=== PATIENT | female | born 1930 | race Caucasian/White ===

== ENCOUNTER 2017-07-08 10:16 | Inpatient (IN) | payer OTHER ==
[2017-07-08] MEDS ORDERED: ONDANSETRON 4 MG/2 ML VIAL IVP ONE (10:26)
[2017-07-08] MEDS ORDERED: NS 1,000 ML IV ONE (10:26)
--- NOTE | 2017-07-08 10:26 | EDPHY ---
H & P HPI/ROS: Chief complaint. Right hip pain HPI. 86-year-old female here by EMS after fall at home last night. The trip and fall going to the bathroom. Now unable to bear weight. Pain right hip with range of motion. Fall last week and hit her head and evaluated in an emergency department in [place]. She is not on blood thinners. No other injuries. ROS Constitutional. no fever/chills, no weakness Eyes. no problems with vision ENT. no sore throat, no nasal drainage Cardiovascular. no chest pain Respiratory. no shortness of breath, no cough Abdominal. no abdominal pain, no nausea/vomiting, no diarrhea . no problems urinating MS. Right hip pain Skin. no rash Lymph. no swollen glands Neuro. no headache, no dizziness, no difficulty walking or with speech Past Medical/Surgical History: Healthy Social History: Single, nonsmoker, no alcohol Physical Exam: General Appearance: Alert well-developed female moderate distress vital signs are stable Eyes: Pupils equal and round no pallor or injection. ENT, Mouth: Mucous membranes are moist. Respiratory: There are no retractions, lungs are clear to auscultation. Cardiovascular: Regular rate and rhythm. Gastrointestinal: Abdomen is soft and nontender, no masses, bowel sounds normal. Neurological: Awake and alert, sensory and motor exams grossly normal. Skin: Warm and dry, no rashes. Musculoskeletal: Neck is supple nontender. Extremities right leg is shortened and externally rotated. Pain right hip with range of motion Psychiatric: Patient is oriented X 3, there is no agitation. Constitutional: Initial Vital Signs Temperature (C) 37 C 07/08/17 10:20 Heart Rate 87 07/08/17 10:20 Respiratory Rate 18 07/08/17 10:20 Blood Pressure 175/85 H 07/08/17 10:20 O2 Sat (%) 97 07/08/17 10:20 O2 Delivery Mode Nasal Cannula O2 (L/minute) 2 Allergies/Adverse Reactions: No Known Allergies Allergy (Unverified 07/08/17 10:29) Home Medications: Medication Instructions Recorded Anastrozole [Arimidex 1 mg (*)] 1 mg PO DAILY 07/08/17 Aspirin [Aspirin 81mg (*)] 81 mg PO DAILY 07/08/17 DULoxetine [Cymbalta 30 MG (*)] 30 mg PO DAILY 07/08/17 Donepezil HCl [Aricept 5 MG (*)] 5 mg PO HS 07/08/17 Ibuprofen [Motrin (*)] 200 - 400 mg PO Q6HRS PRN 07/08/17 traZODone [traZODONE 100MG (*)] 100 mg PO HS 07/08/17 Medical Decision Making - Diagnostics EKG Interpretation: EKG was interpreted by me and was nonacute. Please see trace master results Imaging Results: Chest x-ray is nonacute X-ray right hip interpreted by me as and intertrochanteric fracture Procedures: IV normal saline. Dilaudid for pain ED Course/Re-evaluation: Patient and daughter and I discussed imaging study results we discussed treatment plan including recommendation for admission and surgery. They expressed understanding and agreement I consulted and discussed the case with Dr. Cruz, orthopedist, who will see the patient in consultation I consulted and discussed case with hospitalist who agrees to the admission Patient is kept NPO Differential Diagnosis: I considered fracture, dislocation, sprain - Data Points Laboratory Results: Laboratory Results 07/08/17 10:31 07/08/17 10:31 Medications Given: Acetaminophen (Tylenol) 650 mg PO Q4HRS PRN PRN Reason: Pain, Mild/Fever, Can Take PO Stop: 01/04/18 13:41 Last Admin: 07/09/17 13:11 Dose: 650 mg Donepezil HCl (Aricept) 5 mg PO HS [facility] Stop: 01/04/18 20:59 Last Admin: 07/08/17 21:00 Dose: 5 mg Duloxetine HCl (Cymbalta) 30 mg PO DAILY [facility] Stop: 01/05/18 08:59 Last Admin: 07/09/17 09:31 Dose: 30 mg Lactated Ringer's (Lr) 1,000 mls @ 100 mls/hr IV CONT [facility] Stop: 01/05/18 03:29 Last Admin: 07/09/17 11:55 Dose: 1,000 mls Cefazolin Sodium/Dextrose (Ancef 1 Gm (Premix)) 50 mls @ 200 mls/hr IV Q8HRS [facility] PRN Reason: Protocol Stop: 07/10/17 13:59 Last Admin: 07/09/17 13:44 Dose: 50 mls Oxycodone/Acetaminophen (Percocet 5/325) 1 - 2 tab PO Q4HRS PRN PRN Reason: Pain, Severe Able to Take PO Stop: 07/18/17 13:41 Last Admin: 07/09/17 13:56 Dose: 1 tab Trazodone HCl (Trazodone) 100 mg PO HS [facility] Stop: 01/04/18 20:59 Last Admin: 07/08/17 21:00 Dose: 100 mg Discontinued Medications Bupivacaine HCl (Sensorcaine 0.5% Vial) Confirm Administered Dose 30 ml .ROUTE .STK-MED ONE Stop: 07/08/17 16:27 Last Admin: 07/08/17 17:40 Dose: Not Given Bupivacaine HCl/Epinephrine Bitart (Bupivacaine/Epi) Confirm Administered Dose 30 ml .ROUTE .STK-MED ONE Stop: 07/08/17 16:27 Last Admin: 07/08/17 17:40 Dose: 10 ml Hydromorphone HCl (Dilaudid) 0.5 mg IVP EDNOW ONE Stop: 07/08/17 11:18 Last Admin: 07/08/17 11:23 Dose: 0.5 mg Sodium Chloride (Ns) 1,000 mls @ 0 mls/hr IV EDNOW ONE; Wide Open PRN Reason: Protocol Stop: 07/08/17 10:27 Last Admin: 07/08/17 10:48 Dose: 1,000 mls Cefazolin Sodium/Dextrose (Ancef 1 Gm (Premix)) 50 mls @ 200 mls/hr IV ONCALL ONE PRN Reason: Protocol Stop: 07/08/17 17:08 Last Admin: 07/08/17 17:41 Dose: 50 mls Labetalol HCl (Trandate Injection) 5 - 10 mg IVP Q10M PRN PRN Reason: PACU, Hypertension Stop: 07/08/17 18:51 Last Admin: 07/08/17 18:34 Dose: 5 mg Morphine Sulfate (Morphine) 6 mg IVP EDNOW ONE Stop: 07/08/17 10:27 Last Admin: 07/08/17 10:48 Dose: 6 mg Ondansetron HCl (Zofran) 4 mg IVP EDNOW ONE Stop: 07/08/17 10:27 Last Admin: 07/08/17 10:48 Dose: 4 mg Departure - Departure Disposition: [facility] Acute Clinical Impression: Right femoral shaft fracture Qualifiers: Encounter type: initial encounter Fracture type: closed Fracture morphology: comminuted Fracture alignment: nondisplaced Qualified Code(s): S72.354A - Nondisplaced comminuted fracture of shaft of right femur, initial encounter for closed fracture Condition: Fair
[2017-07-08 10:41] LABS: PLATELET COUNT 245 10^3/uL (150-400)
--- NOTE | 2017-07-08 10:51 | CPEKG ---
Heart Rate: 81 RR Interval: 741 P-R Interval: 160 QRSD Interval: 78 QT Interval: 388 QTC Interval: 451 P Xenia: 73 QRS Xenia: 32 T Wave Xenia: 71 EKG Severity - NORMAL ECG - EKG Impression: SINUS RHYTHM Electronically Signed By: Santos Gupta 08-Jul-2017 16:15:39
[2017-07-08 10:55] LABS: INR 0.95 (0.83-1.16); PROTIME(PATIENT) 12.9 SEC (12.0-15.0)
[2017-07-08] MEDS ORDERED: HYDROmorphONE/DILAUDID 1 MG/ML INJ IVP ONE (11:17)
[2017-07-08] MEDS ORDERED: ONDANSETRON DISINTEGRATING 4 MG TAB PO PRN (13:42)
[2017-07-08] MEDS ORDERED: ONDANSETRON 4 MG/2 ML VIAL IVP PRN ×2 (13:42→17:51)
[2017-07-08] MEDS ORDERED: BUPIVACAINE/EPI 0.5% 30 ML SDV ONE (16:26)
[2017-07-08] MEDS ORDERED: BUPIVACAINE 0.5% 30 ML SDV ONE (16:26)
--- NOTE | 2017-07-08 16:32 | PDANEPAE ---
ANE History of Present Illness R hip TFN ANE Past Medical History - Pulmonary History Hx Oxygen in Use at Home: No Hx Sleep Apnea: No Sleep Apnea Screening Result - Last Documented: Negative - Neurologic History Hx Dementia: Yes - Endocrine History Hx Diabetes: No - Cancer History Hx Cancer: Yes Cancer History Comment: breast ANE Review of Systems Review of systems is: negative Review of Systems: ANE Patient History - Allergies Allergies/Adverse Reactions: No Known Allergies Allergy (Unverified 07/08/17 10:29) - Home Medications Home medications: home medication list seen and reviewed Home Medications: Anastrozole [Arimidex 1 mg (*)] 1 mg PO DAILY 07/08/17 [Last Taken 07/08/17] Aspirin [Aspirin 81mg (*)] 81 mg PO DAILY 07/08/17 [Last Taken 07/08/17] DULoxetine [Cymbalta 30 MG (*)] 30 mg PO DAILY 07/08/17 [Last Taken 07/08/17] Donepezil HCl [Aricept 5 MG (*)] 5 mg PO HS 07/08/17 [Last Taken 07/07/17] Ibuprofen [Motrin (*)] 200 - 400 mg PO Q6HRS PRN 07/08/17 [Last Taken 07/08/17 400mg] traZODone [traZODONE 100MG (*)] 100 mg PO HS 07/08/17 [Last Taken 07/07/17] - NPO status NPO Status: no food or drink >8 hours NPO Since - Liquids (Date): 07/08/17 NPO Since - Liquids (Time): 09:00 NPO Since - Solids (Date): 07/07/17 NPO Since - Solids (Time): 22:00 - Anes Hx Anes Hx: no prior problems - Smoking Hx Smoking Status: Former smoker - Family Anes Hx Family Anes Hx: none ANE Labs/Vital Signs - Labs Result Diagrams: 07/08/17 10:31 07/08/17 10:31 - Vital Signs Blood Pressure: 138/87 Heart Rate: 77 Respiratory Rate: 20 O2 Sat (%): 100 Height: 167.64 cm Weight: 51.71 kg ANE Physical Exam - Airway Neck exam: FROM Mallampati Score: Class 2 Mouth exam: normal dental/mouth exam - Pulmonary Pulmonary: no respiratory distress - Cardiovascular Cardiovascular: regular rate and rhythym - ASA Status ASA Status: II ANE Anesthesia Plan Anesthesia Plan: GA w LMA
[2017-07-08] MEDS ORDERED: fentaNYL 100 MCG/2 ML INJ ONE (16:55)
[2017-07-08] MEDS ORDERED: DEXAMETHASONE 4 MG/ML VIAL ONE (16:55)
[2017-07-08] MEDS ORDERED: PROPOFOL 200 MG/20 ML VIAL ONE (16:55)
[2017-07-08] MEDS ORDERED: ONDANSETRON 4 MG/2 ML VIAL ONE (16:55)
[2017-07-08] MEDS ORDERED: LIDOCAINE 2% 100 MG/5 ML SYR ONE (16:55)
[2017-07-08] MEDS ORDERED: CEFAZOLIN 1 GM/DEXTROSE/50 ML BAG IV ONE (17:00)
--- NOTE | 2017-07-08 17:23 | GCON ---
[f rep st] CONSULTATION DATE OF CONSULTATION: 07/08/2017 ATTENDING PHYSICIAN: Santos Gupta MD. CHIEF COMPLAINT: Right hip pain. HISTORY OF PRESENT ILLNESS: The patient is an 86-year-old woman who was brought by ambulance after f alling at home earlier this morning. She was getting up, going to the bathroom and slipped. She str uck across her right forearm and twisted across her right leg. She complained of immediate pain. Sapna ulloa has had a previous fall last week, and was evaluated in an emergency department in [place]. She is moving here closer to family from [place]. She denies any other associated injuries. PAST MEDICAL HISTORY: Denies. PAST SURGICAL HISTORY: Denies. MEDICATIONS: See chart. ALLERGIES: Denies. SOCIAL HISTORY: She lives in [place] currently, but is moving to [place]. Denies any alcohol or tobacco use. REVIEW OF SYSTEMS: Negative for chest pain, shortness of breath, belly pain, back pain, numbness, ti ngling, or other joint-related complaints. OBJECTIVE: GENERAL: This is a thin woman in no acute distress. EXTREMITIES: Her right lower extre mity is shortened and externally rotated. 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 She is other hernandez nontender across her digits, wrists, forearm, elbows, shoulders, and there is no focal step-off or crepitus. Left lower extremity demonstrates no focal crepitus, step-off, tenderness or other comp laint. She is tender across the right hip. Examination of the knee is not possible without discomfo rt currently. She has intact active plantar flexion and dorsiflexion. Sensation is intact to light touch. IMAGING: Radiographs, AP/lateral, demonstrate a right intertrochanteric femur fracture with 90 degre es of angulation. IMPRESSION: Right intertrochanteric femur fracture. TREATMENT PLAN: I have recommended operative intervention with intramedullary nail placement. Given her recurrent falls, I recommended long nail placement. I have outlined the surgical procedure, ris ks, benefits, and alternatives at length. She wished to proceed. Appropriate consent will be signed and placed on the patient's chart. /[id number]/MODL
--- NOTE | 2017-07-08 17:34 | PDGENHP ---
History and Physical - Chief Complaint right hip fracture - History of Present Illness this is an 86 yo female who had a mechanical fall and suffered a right hip fracture earlier today. She is scheduled to have surgical mgmt today. She does not have any significant past med hx she had been feeling well pain is well controlled she has no known cardiac or pulm disease. No hx of VTE PMHx: dementia, insomnia PSHx: lumpectomy SocHx: previous tobacco smoker, no illicits, daily ETOH (one drink) FmHx: NC History Information - Allergies/Home Medication List Allergies/Adverse Reactions: No Known Allergies Allergy (Unverified 07/08/17 10:29) Home Medications: Anastrozole [Arimidex 1 mg (*)] 1 mg PO DAILY 07/08/17 [Last Taken 07/08/17] Aspirin [Aspirin 81mg (*)] 81 mg PO DAILY 07/08/17 [Last Taken 07/08/17] DULoxetine [Cymbalta 30 MG (*)] 30 mg PO DAILY 07/08/17 [Last Taken 07/08/17] Donepezil HCl [Aricept 5 MG (*)] 5 mg PO HS 07/08/17 [Last Taken 07/07/17] Ibuprofen [Motrin (*)] 200 - 400 mg PO Q6HRS PRN 07/08/17 [Last Taken 07/08/17 400mg] traZODone [traZODONE 100MG (*)] 100 mg PO HS 07/08/17 [Last Taken 07/07/17] I have personally reviewed and updated: medical history, social history - Social History Smoking Status: Former smoker Review of Systems Review of Systems: ROS: 10pt was reviewed & negative except for what was stated in HPI & below Physical Exam Physical Exam: Temp Pulse Resp BP Pulse Ox 37 C 77 20 138/87 H 100 07/08/17 15:24 07/08/17 16:33 07/08/17 16:33 07/08/17 16:33 07/08/17 16:33 O2 (L/minute) 2 Constitutional: no apparent distress, appears nourished Eyes: PERRL, EOMI Ears, Nose, Mouth, Throat: moist mucous membranes, hearing normal, ears appear normal Cardiovascular: regular rate and rhythym, No edema Respiratory: no respiratory distress, no rales or rhonchi, clear to auscultation Gastrointestinal: normoactive bowel sounds, soft, non-tender abdomen Skin: warm Neurologic: AAOx3 Psychiatric: interacting appropriately, not anxious, not encephalopathic Lymph, Heme, Immunologic: No petechiae Lab Data & Imaging Review 07/08/17 10:31 07/08/17 10:31 WBC 7.77 10^3/uL (3.80-9.50) 07/08/17 10:31 RBC 3.76 10^6/uL (4.18-5.33) L 07/08/17 10:31 Hgb 12.2 g/dL (12.6-16.3) L 07/08/17 10:31 Hct 37.1 % (38.0-47.0) L 07/08/17 10:31 MCV 98.7 fL (81.5-99.8) 07/08/17 10:31 MCH 32.4 pg (27.9-34.1) 07/08/17 10:31 MCHC 32.9 g/dL (32.4-36.7) 07/08/17 10:31 RDW 16.1 % (11.5-15.2) H 07/08/17 10:31 Plt Count 245 10^3/uL (150-400) 07/08/17 10:31 MPV 10.8 fL (8.7-11.7) 07/08/17 10:31 Neut % (Auto) 75.1 % (39.3-74.2) H 07/08/17 10:31 Lymph % (Auto) 11.3 % (15.0-45.0) L 07/08/17 10:31 [place] % (Auto) 12.5 % (4.5-13.0) 07/08/17 10:31 Eos % (Auto) 0.4 % (0.6-7.6) L 07/08/17 10:31 Baso % (Auto) 0.3 % (0.3-1.7) 07/08/17 10:31 Nucleat RBC Rel Count 0.0 % (0.0-0.2) 07/08/17 10:31 Absolute Neuts (auto) 5.84 10^3/uL (1.70-6.50) 07/08/17 10:31 Absolute Lymphs (auto) 0.88 10^3/uL (1.00-3.00) L 07/08/17 10:31 Absolute Monos (auto) 0.97 10^3/uL (0.30-0.80) H 07/08/17 10:31 Absolute Eos (auto) 0.03 10^3/uL (0.03-0.40) 07/08/17 10:31 Absolute Basos (auto) 0.02 10^3/uL (0.02-0.10) 07/08/17 10:31 Absolute Nucleated RBC 0.00 10^3/uL (0-0.01) 07/08/17 10:31 Immature Gran % 0.4 % (0.0-1.1) 07/08/17 10:31 Immature Gran # 0.03 10^3/uL (0.00-0.10) 07/08/17 10:31 PT 12.9 SEC (12.0-15.0) 07/08/17 10:31 INR 0.95 (0.83-1.16) 07/08/17 10:31 APTT 24.2 SEC (23.0-38.0) 07/08/17 10:31 Sodium 142 mEq/L (135-145) 07/08/17 10:31 Potassium 4.4 mEq/L (3.5-5.2) 07/08/17 10:31 Chloride 106 mEq/L (97-110) 07/08/17 10:31 Carbon Dioxide 28 mEq/l (22-31) 07/08/17 10:31 Anion Gap 8 mEq/L (8-16) 07/08/17 10:31 BUN 15 mg/dL (7-23) 07/08/17 10:31 Creatinine 0.7 mg/dL (0.6-1.0) 07/08/17 10:31 Estimated GFR > 60 07/08/17 10:31 Glucose 101 mg/dL (70-100) H 07/08/17 10:31 Calcium 9.8 mg/dL (8.5-10.4) 07/08/17 10:31 Assessment & Plan Assessment: #Right hip fracture #S/P mechanical fall #Hx of dementia #Insomnia Plan: surgical mgmt per ortho EKG, CXR reviewed, low risk, ok to proceed with surgical repair Pain mgmt appropriate home meds AC per surgery PT/OT Full code
[2017-07-08] MEDS ORDERED: MEPERIDINE 25 MG/ML SYR IVP PRN (17:51)
[2017-07-08] MEDS ORDERED: ACETAMINOPHEN 500 MG TAB PO PRN (17:51)
[2017-07-08] MEDS ORDERED: HYDROCODONE/APAP 5/325 TAB PO PRN (17:51)
[2017-07-08] MEDS ORDERED: fentaNYL 100 MCG/2 ML INJ IVP PRN (17:51)
[2017-07-08] MEDS ORDERED: LABETALOL HCL 5 MG/ML 20 ML MDV IVP PRN (17:51)
[2017-07-08] MEDS ORDERED: DEXAMETHASONE 4 MG/ML VIAL IVP PRN (17:51)
[2017-07-08] MEDS ORDERED: HYDROmorphONE/DILAUDID 1 MG/ML INJ IVP PRN (17:51)
[2017-07-08] MEDS ORDERED: OXYCODONE/APAP 5/325 TAB PO PRN (17:51)
[2017-07-08] MEDS ORDERED: NALOXONE HCL 0.4 MG/ML INJ IVP PRN (17:51)
--- NOTE | 2017-07-08 17:54 | POSTANESTH ---
Post Anesthetic Evaluation Cardiovascular Status: Similar to Pre-Op Cond, Tx Hyper/Hypo-tension Respiratory Status: Normal, Stable, Similar to Pre-op Cond. Level of Consciousness/Mental Status: Can Participate in Eval, Mildly Sleepy, Arousable Pain Control: Adequate, Prn Tx Ordered Nausea/Vomiting Control: Adequate, Prn Tx Ordered Complications Possibly Related to Anesthesia: None Noted
[2017-07-08] MEDS ORDERED: LABETALOL HCL 5 MG/ML 20 ML MDV ONE (18:33)
[2017-07-08] MEDS: traZODone 100 MG TAB PO SCH (21:00)
[2017-07-08] MEDS: DONEPEZIL HCL 5 MG TAB PO SCH (21:00)
[2017-07-09] MEDS ORDERED: D50W 25 GM/50 ML VIAL IVP PRN (03:11)
[2017-07-09] MEDS: OXYCODONE/APAP 5/325 TAB PO PRN ×3 (03:20→20:03)
[2017-07-09] MEDS: LR 1,000 ML IV SCH ×3 (03:22→22:17)
--- NOTE | 2017-07-09 07:57 | PDIAF ---
- Diagnosis Diagnosis: right femur fx Code Status: Full Code - Medication Management Discharge Medications: Medications to Continue on Transfer Anastrozole [Arimidex 1 mg (*)] 1 mg PO DAILY 07/08/17 [Last Taken 07/08/17] Aspirin [Aspirin 81mg (*)] 81 mg PO DAILY 07/08/17 [Last Taken 07/08/17] DULoxetine [Cymbalta 30 MG (*)] 30 mg PO DAILY 07/08/17 [Last Taken 07/08/17] Donepezil HCl [Aricept 5 MG (*)] 5 mg PO HS 07/08/17 [Last Taken 07/07/17] Ibuprofen [Motrin (*)] 200 - 400 mg PO Q6HRS PRN 07/08/17 [Last Taken 07/08/17 400mg] traZODone [traZODONE 100MG (*)] 100 mg PO HS 07/08/17 [Last Taken 07/07/17] Discharge Medications: Refer to the Discharge Home Medication list for PRN reason. - Orders Activity/Weight Bearing Restrictions: wbat. rom as tolerated. daily dressing changes. may shower without bandage. no soaking or immersion. f/u [facility] at [facility] [place] 2 [place] - Follow Up Care Current Providers and Referrals: Patient,NotPresent [Unknown] - As per Instructions
[2017-07-09] MEDS: DULoxetine 30 MG CAP PO SCH (09:31)
[2017-07-09] MEDS: ACETAMINOPHEN 325 MG TAB PO PRN ×2 (09:31→13:11)
[2017-07-09] MEDS ORDERED: POLYETHYLENE GLYCOL 3350 17 GM PKT PO PRN (11:09)
[2017-07-09] MEDS ORDERED: MAGNESIUM HYDROXIDE 30 ML UDCUP PO PRN (11:09)
[2017-07-09] MEDS ORDERED: BISACODYL 10 MG SUPP PR PRN (11:09)
[2017-07-09] MEDS ORDERED: LACTULOSE 20 GM/30 ML UDCUP PO PRN (11:09)
--- NOTE | 2017-07-09 11:18 | SOAPPROG ---
SOAP Progress Note Assessment/Plan: Assessment: s/p im nail right femur fx Plan: wbat rom as sary will need snf 07/09/17 11:15 Subjective: min pain no cp Objective: Vital Signs Temp Pulse Resp BP Pulse Ox 37.0 C 81 16 94/52 L 98 07/09/17 07:31 07/09/17 07:31 07/09/17 07:31 07/09/17 07:31 07/09/17 07:31 07/08/17 07/09/17 07/10/17 05:59 05:59 05:59 Intake Total 1050 Output Total 570 Balance 480 PT 12.9 SEC (12.0-15.0) 07/08/17 10:31 INR 0.95 (0.83-1.16) 07/08/17 10:31 dressing intact intact pf,df,ehl toes warm pink ICD10 Worksheet Patient Problems: Problems Problem Status Onset Right femoral shaft fracture Acute - ICD10 Problem Qualifiers (1) Right femoral shaft fracture
--- NOTE | 2017-07-09 13:38 | ASMTCMCOM ---
CM Note CM Note Notes: Chart reviewed. Met with family and patient to review dc plan of care. Patient is s/p fall and femur fx pinning, Patient was currently in transition to assisted living but was declines per daughter at last minute.The daughter sates she hopes her mother can be re-evaluated for assisted living as she feels her mentation seems good. Plan will be SNF at discharge. Referral placed awaiting notifications. CM to follow. Date Signed: 07/09/2017 01:36 PM Electronically Signed By:Ines Graf RN
--- NOTE | 2017-07-09 15:07 | HOSPPROG ---
Hospitalist Progress Note Assessment/Plan: #Right hip fracture, S/P Repair on 07/08 #S/P mechanical fall #Hx of dementia #Insomnia #Acute right leg pain and pain behind right knee Plan: RLE doppler to r/o DVT now surgical mgmt per ortho Pain mgmt appropriate home meds have been continued AC per surgery PT/OT will need SNF Full code Subjective: right leg pain and right knee pain Objective: Vital Signs Temp Pulse Resp BP Pulse Ox 36.9 C 82 16 87/57 L 91 L 07/09/17 11:42 07/09/17 11:42 07/09/17 11:42 07/09/17 11:42 07/09/17 11:42 07/08/17 07/09/17 07/10/17 05:59 05:59 05:59 Intake Total 1050 Output Total 570 Balance 480 PT 12.9 SEC (12.0-15.0) 07/08/17 10:31 INR 0.95 (0.83-1.16) 07/08/17 10:31 - Physical Exam Constitutional: no apparent distress Eyes: PERRL, EOMI Ears, Nose, Mouth, Throat: moist mucous membranes, hearing normal Cardiovascular: regular rate and rhythym, No edema Respiratory: no respiratory distress, no rales or rhonchi Gastrointestinal: normoactive bowel sounds Skin: abrasion (back of right calf) Musculoskeletal: generalized weakness, other (TTP behind right knee) Neurologic: AAOx3 Psychiatric: interacting appropriately, not anxious, not encephalopathic ICD10 Worksheet Patient Problems: Problems Problem Status Onset Right femoral shaft fracture Acute
[2017-07-09] MEDS: HYDROmorphONE/DILAUDID 1 MG/ML INJ IVP PRN ×2 (15:27→20:03)
[2017-07-09] MEDS: ENOXAPARIN 40 MG/0.4 ML SYR SC SCH (16:52)
[2017-07-09] MEDS: traZODone 100 MG TAB PO SCH (20:03)
[2017-07-09] MEDS: SENNOSIDES/DOCUSATE SODIUM TAB PO SCH (20:03)
[2017-07-09] MEDS: DONEPEZIL HCL 5 MG TAB PO SCH (20:03)
[2017-07-10] MEDS: OXYCODONE/APAP 5/325 TAB PO PRN ×3 (04:59→18:36)
[2017-07-10] MEDS: HYDROmorphONE/DILAUDID 1 MG/ML INJ IVP PRN (05:02)
[2017-07-10] MEDS: LR 1,000 ML IV SCH (05:03)
[2017-07-10] MEDS: ACETAMINOPHEN 325 MG TAB PO PRN (08:18)
[2017-07-10] MEDS: SENNOSIDES/DOCUSATE SODIUM TAB PO SCH ×2 (08:19→20:15)
[2017-07-10] MEDS: DULoxetine 30 MG CAP PO SCH (08:20)
[2017-07-10] MEDS: ENOXAPARIN 40 MG/0.4 ML SYR SC SCH (08:20)
--- NOTE | 2017-07-10 09:14 | WOCRNPDOC ---
WOCRN Advanced Assessment Note - Skin Integrity Problem, Advanced Assess Right Posterior Lower Leg Dressing Type: Allevyn Life Dressing Description: Intact Exudate Amount: Scant Exudate Color: Reddish/Yellow Exudate Characteristic(s): Serosanguinous Integumentary Issue Intervention: Visualized Under Dressing Joann Wound Tissue: Hemosiderin Staining, Thin, Dry Joann Wound Swelling: None Wound Bed Color: Red Wound Bed Constitution: Red/Emmons - Non Granular Tissue Site Measurement - Head-to-Toe Length X Width X Depth (cm): 0.5cmx0.6cmx0.1cm Skin Integrity Problem Comment: Small skin tear noted to posterior aspect of patient's R lower leg. No fluctuance and no c/o pain when periwound tissue palpated. Nursing was concerned about potential of clot, however R leg is not swollen, hot, or tender to touch. Ok to use TEDs and SCDs over wound w/ dressing. Lotion ordered BID to protect patient's thin, dry skin.
[2017-07-10 11:28] LABS: PLATELET COUNT 198 10^3/uL (150-400)
--- NOTE | 2017-07-10 14:27 | HOSPPROG ---
Hospitalist Progress Note Assessment/Plan: #Right hip fracture, S/P Repair on 07/08 #S/P mechanical fall #Hx of dementia, Aricept, Trazodone, Aricept #Insomnia #Acute right leg pain and pain behind right knee -improving -negative doppler #Hypotension #Post operative anemia, Hgb 8.3, was 12.2 -despite IVF #Macrocytosis Plan: stop IVF and transfuse 1 unit blood surgical mgmt per ortho Pain mgmt, Dilaudid, Percocet appropriate home meds have been continued check b12 and folate AC per surgery, on Lovenox PT/OT will need SNF Full code Subjective: Still with low BP despite IVF. No resp symtoms .Right leg pain is better. Negative ultrasound for DVT. Afebrile. Objective: Vital Signs Temp Pulse Resp BP Pulse Ox 36.7 C 79 15 99/55 L 99 07/10/17 11:41 07/10/17 11:41 07/10/17 11:41 07/10/17 11:41 07/10/17 11:41 Laboratory Results 07/10/17 11:11 07/10/17 05:00 07/09/17 07/10/17 07/11/17 05:59 05:59 05:59 Intake Total 1050 1400 Output Total 570 200 Balance 480 1200 PT 12.9 SEC (12.0-15.0) 07/08/17 10:31 INR 0.95 (0.83-1.16) 07/08/17 10:31 - Physical Exam Constitutional: no apparent distress Eyes: PERRL, EOMI, other (pale) Ears, Nose, Mouth, Throat: moist mucous membranes, hearing normal Cardiovascular: regular rate and rhythym, No edema Respiratory: no respiratory distress, no rales or rhonchi, clear to auscultation Gastrointestinal: normoactive bowel sounds Skin: warm Neurologic: AAOx3 Psychiatric: interacting appropriately, not anxious, not encephalopathic Lymph, Heme, Immunologic: No petechiae ICD10 Worksheet Patient Problems: Problems Problem Status Onset Right femoral shaft fracture Acute
--- NOTE | 2017-07-10 18:17 | ASMTCMCOM ---
CM Note CM Note Notes: Dc plan is still to go to SNF. Met w/pt's daughter today to discuss. She said their first choice [facility] [place]. I sent refeerral (referrals to [facility] yesterday). Spoke w/Shelby at [facility] [place] who said they do not have [facility] beds available at this time but will let us know if that changes. Discussed w.daughter and she will let us know their second choice for SNF. when pt dc'd, CM will need to check w/[facility] [place] to see if they have beds. Date Signed: 07/10/2017 06:16 PM Electronically Signed By:Celeste Macedo RN
[2017-07-10] MEDS: traZODone 100 MG TAB PO SCH (20:15)
[2017-07-10] MEDS: DONEPEZIL HCL 5 MG TAB PO SCH (20:15)
[2017-07-11 05:13] LABS: PLATELET COUNT 225 10^3/uL (150-400)
[2017-07-11] MEDS: ENOXAPARIN 40 MG/0.4 ML SYR SC SCH (08:17)
[2017-07-11] MEDS: OXYCODONE/APAP 5/325 TAB PO PRN ×2 (08:18→13:51)
[2017-07-11] MEDS: SENNOSIDES/DOCUSATE SODIUM TAB PO SCH ×2 (08:18→22:12)
[2017-07-11] MEDS: DULoxetine 30 MG CAP PO SCH (08:18)
--- NOTE | 2017-07-11 11:43 | SOAPPROG ---
SOAP Progress Note Assessment/Plan: Assessment: POD#4 s/p R long TFN for IT fx -Hgb improved after transfusion Plan: -appreciate care of hospitalist service -DVT prophy with Nicole -cont PT -pain ctrl -plan SNF when stable -ortho will follow 07/11/17 11:40 Subjective: Needed blood transfusion for symptomatic anemia. Doing well this am. Pain is controlled. Has not worked much with PT yet Objective: Vital Signs Temp Pulse Resp BP Pulse Ox 37.4 C 93 18 147/78 H 95 07/11/17 08:00 07/11/17 08:00 07/11/17 08:00 07/11/17 08:00 07/11/17 08:00 Laboratory Results 07/11/17 04:40 07/10/17 05:00 07/10/17 07/11/17 07/12/17 05:59 05:59 05:59 Intake Total 1400 750 550 Output Total 200 400 325 Balance 1200 350 225 PT 12.9 SEC (12.0-15.0) 07/08/17 10:31 INR 0.95 (0.83-1.16) 07/08/17 10:31 RLE -dressing is clean with mild serosang breakthrough -intact TA/GS -SILT foot -foot well perfused - Time Spent With Patient Time Spent With Patient: 10 min ICD10 Worksheet Patient Problems: Problems Problem Status Onset Right femoral shaft fracture Acute
--- NOTE | 2017-07-11 15:24 | HOSPPROG ---
Hospitalist Progress Note Assessment/Plan: #Right hip fracture, S/P Repair on 07/08 #S/P mechanical fall #Hx of dementia, Aricept, Trazodone, Aricept #Insomnia #Acute right leg pain -persistent -negative doppler #Hypotension, resolved after transfusion #Post operative anemia, Hgb 8.3, was 12.2 -s/p PRBC transfusion 1 unit on 07/10 #Macrocytosis, normal b12 and folate Plan: -cv and heme ok -pain is the main issue at this point. Will schedule tylenol. Change percocet to oxy. ok to give iv dilaudid if mentation is stable today. only po tomorrow -hope for d/c tomorrow AC per surgery, on Lovenox PT/OT will need SNF Full code Subjective: bp is better. lots of right leg pain. evaluated by surgery earlier. no leg swelling. no cp or sob. Objective: Vital Signs Temp Pulse Resp BP Pulse Ox 36.5 C 78 16 111/56 L 100 07/11/17 11:53 07/11/17 11:53 07/11/17 11:53 07/11/17 11:53 07/11/17 11:53 Laboratory Results 07/11/17 04:40 07/10/17 05:00 07/10/17 07/11/17 07/12/17 05:59 05:59 05:59 Intake Total 1400 750 800 Output Total 200 400 525 Balance 1200 350 275 PT 12.9 SEC (12.0-15.0) 07/08/17 10:31 INR 0.95 (0.83-1.16) 07/08/17 10:31 - Physical Exam Constitutional: no apparent distress Eyes: PERRL Ears, Nose, Mouth, Throat: moist mucous membranes Cardiovascular: regular rate and rhythym, No edema Respiratory: no respiratory distress, no rales or rhonchi Gastrointestinal: normoactive bowel sounds Skin: warm Neurologic: AAOx3 Psychiatric: interacting appropriately, not anxious, not encephalopathic Lymph, Heme, Immunologic: No petechiae ICD10 Worksheet Patient Problems: Problems Problem Status Onset Right femoral shaft fracture Acute
[2017-07-11] MEDS: oxyCODONE IR 5 MG TAB PO PRN ×2 (17:47→22:09)
[2017-07-11] MEDS: ACETAMINOPHEN 325 MG TAB PO SCH (17:48)
--- NOTE | 2017-07-11 18:10 | ASMTCMCOM ---
CM Note CM Note Notes: Reviewed chart, spoke w/ Dr. Khan regarding discharge plan, pt's progress. Per , pt will likely be ready for discharge tomorrow, 07/12/17. Dr. Khan alerted bed availability is limited at pt's preferred facilities. Call placed to Naif at [facility]. Per Naif, there are no beds available Sun, but he will possibly have 3 beds opening up on 07/13/17. Call placed to [facility] LVM for Admissions; awaiting to call back to see if a [facility] bed will be open Sun. CM will cont to follow. Current Discharge Plan: SNF Date Signed: 07/11/2017 06:09 PM Electronically Signed By:Eunice Guaman RN
[2017-07-11] MEDS: traZODone 100 MG TAB PO SCH (22:09)
[2017-07-11] MEDS: DONEPEZIL HCL 5 MG TAB PO SCH (22:10)
[2017-07-11 23:56] VITALS: RESP 16
[2017-07-12] MEDS: ACETAMINOPHEN 325 MG TAB PO SCH ×3 (00:42→11:57)
[2017-07-12] MEDS: oxyCODONE IR 5 MG TAB PO PRN ×3 (06:11→14:24)
[2017-07-12 07:48] VITALS: BP 148/85; TEMP 97.4
[2017-07-12] MEDS: ENOXAPARIN 40 MG/0.4 ML SYR SC SCH (09:35)
[2017-07-12] MEDS: DULoxetine 30 MG CAP PO SCH (09:35)
[2017-07-12] MEDS: SENNOSIDES/DOCUSATE SODIUM TAB PO SCH (09:36)
--- NOTE | 2017-07-12 14:06 | PDIAF ---
- Diagnosis Diagnosis: right femur fx Code Status: Full Code - Medication Management Discharge Medications: Medications to Continue on Transfer Anastrozole [Arimidex 1 mg (*)] 1 mg PO DAILY 07/08/17 [Last Taken 07/08/17] Aspirin [Aspirin 81mg (*)] 81 mg PO DAILY 07/08/17 [Last Taken 07/08/17] DULoxetine [Cymbalta 30 MG (*)] 30 mg PO DAILY 07/08/17 [Last Taken 07/08/17] Donepezil HCl [Aricept 5 MG (*)] 5 mg PO HS 07/08/17 [Last Taken 07/07/17] Ibuprofen [Motrin (*)] 200 - 400 mg PO Q6HRS PRN 07/08/17 [Last Taken 07/08/17 400mg] traZODone [traZODONE 100MG (*)] 100 mg PO HS 07/08/17 [Last Taken 07/07/17] Acetaminophen [Tylenol 325mg (*)] 650 mg PO Q6HRS #20 tab 07/12/17 [Last Taken Unknown] oxyCODONE IR [Oxycodone Ir (*)] 5 - 10 mg PO Q4HRS PRN #30 tab 07/12/17 [Last Taken Unknown] Discharge Medications: Refer to the Discharge Home Medication list for PRN reason. - Orders Services needed: Home Care, Physical Therapy, Occupational Therapy Home Care Face to Face: I certify that this patient was under my care and that I had the required [id number] encounter meeting the encounter requirements on the discharge day. My findings support the fact that the patient is homebound as defined in Home Care Face to Face Continued: CMS Chapter 7 Medicare Benefits Manual 30.1.1 , The condition of the patient is such that there exists a normal inability to leave home and consequently, leaving home would require a considerable and taxing effort. Diet Recommendation: no restrictions on diet Diet Texture: Regular Texture Diet Activity/Weight Bearing Restrictions: wbat. rom as tolerated. daily dressing changes. may shower without bandage. no soaking or immersion. f/u repine at [facility] [place], [place] 2 weeks - Follow Up Care Current Providers and Referrals: Patient,NotPresent [Unknown] - As per Instructions
--- NOTE | 2017-07-12 14:09 | PDDCSUM ---
Discharge Summary Discharge Summary: 86 yo female admitted for right hip fracture. Now repaired. still with intermittent right leg pain, but improving, imaging was negative for DVT s/p blood transfusion doing better ready for discharge. AC per Ortho f/u with ortho d/c to SNF DDX: #Right hip fracture, S/P Repair on 07/08 #S/P mechanical fall #Hx of dementia, Aricept, Trazodone, Aricept #Insomnia #Acute right leg pain -persistent -negative doppler #Hypotension, resolved after transfusion #Post operative anemia, Hgb 8.3, was 12.2 -s/p PRBC transfusion 1 unit on 07/10 #Macrocytosis, normal b12 and folate EXAM: NAD AAOX3 RRR CTA B S/NT/ND NO LE EDEMA MEDS: SEE MED REC F/U: PER ABOVE TOTAL TIME SPENT ON DISCHARGE IS 35 MINUTES
--- NOTE | 2017-07-12 14:30 | SOAPPROG ---
SOAP Progress Note Assessment/Plan: Assessment: POD#4 s/p R long TFN for IT fx -doing well, pending discharge to SNF shortly Plan: -appreciate care of hospitalist service -DVT prophy with Nicole -WBAT RLE -plan d/c to SNF today -daily dressing changes in SNF -F/u with Dr. Cruz in 2 wks 07/12/17 14:27 Subjective: Doing better today. Pain has been controlled. She is going to SNF shortly Objective: Vital Signs Temp Pulse Resp BP Pulse Ox 36.3 C 75 16 148/85 H 99 07/12/17 07:46 07/12/17 07:46 07/12/17 07:46 07/12/17 07:46 07/12/17 07:46 Laboratory Results 07/11/17 04:40 07/10/17 05:00 07/11/17 07/12/17 07/13/17 05:59 05:59 05:59 Intake Total 750 1350 250 Output Total 400 1125 Balance 350 225 250 PT 12.9 SEC (12.0-15.0) 07/08/17 10:31 INR 0.95 (0.83-1.16) 07/08/17 10:31 RLE -dressing changed, it is c/d/i with no breakthrough -intact EHL/FHL/TA/GS -SILT foot -neg francy - Time Spent With Patient Time Spent With Patient: 10 min - Pending Discharge Pending Discharge Within 24 Hours: Yes Pending Discharge Date: 07/13/17 Pending Discharge Time: 11:00 ICD10 Worksheet Patient Problems: Problems Problem Status Onset Right femoral shaft fracture Acute
--- NOTE | 2017-07-12 15:58 | ASDISCHSUM ---
Discharge Information Plan Status:SNF Medically Cleared to Leave:07/11/2017 Discharge Date:07/12/2017 02:38 PM CM D/C Disposition:[facility] Facility ADT D/C Disposition:[facility] Facility Projected Discharge Date:07/12/2017 03:00 PM Transportation at D/C:ALS/BLS Discharge Delay Reason: Follow-Up Date:07/12/2017 03:00 PM Discharge Slot: Final Diagnosis:R hip fx Placement Information Referral Type:*Retirement/SNF Referral ID:[id number] Provider Name:Bernadette Garnett Address 1:[address] Phone Number: Address 2: Fax Number: City:[place] Selection Factors: State:[place] Patient Contact Information Contact Name:MIKEJUAN Relationship:Daughter Address: Work Phone: City: [facility] Phone: [facility]/Home Team Therapy Code: Email: Financial Information Financial Class:Medicare Advantage Plans Primary Plan Desc:[employer] ADV IP Primary Plan Number:[id number] Secondary Plan Desc: Secondary Plan Number: Assessment Information LACE LACE Acuity / Level of Care Answers: Was the patient admitted to hospital via the emergency department? Yes: Emergency dept visits in Answers: 1 last 6 months Score: 4 Date Signed: 07/08/2017 12:07 PM Electronically Signed By:Aye Zaidi RN [facility] Progress Note CM Note CM Note Notes: Chart reviewed. Met with family and patient to review dc plan of care. Patient is s/p fall and femur fx pinning, Patient was currently in transition to assisted living but was declines per daughter at last minute.The daughter sates she hopes her mother can be re-evaluated for assisted living as she feels her mentation seems good. Plan will be SNF at discharge. Referral placed awaiting notifications. CM to follow. Date Signed: 07/09/2017 01:36 PM Electronically Signed By:Ines Graf RN [facility] CM Progress Note CM Note CM Note Notes: Dc plan is still to go to SNF. Met w/pt's daughter today to discuss. She said their first choice [facility] [place]. I sent refeerral (referrals to [facility] yesterday). Spoke w/Shelby at [facility] [place] who said they do not have [facility] beds available at this time but will let us know if that changes. Discussed w.daughter and she will let us know their second choice for SNF. when pt dc'd, CM will need to check w/[facility]tr [facility] [place] to see if they have beds. Date Signed: 07/10/2017 06:16 PM Electronically Signed By:Celeste Macedo RN [facility] CM Progress Note CM Note CM Note Notes: Reviewed chart, spoke w/ Dr. Khan regarding discharge plan, pt's progress. Per , pt will likely be ready for discharge tomorrow, [facility] 07/12/17. Dr. Khan alerted bed availability is limited at pt's preferred facilities. Call placed to Naif at [facility]. Per Naif, there are no beds available [facility], but he will possibly have 3 beds opening up on 07/13/17. Call placed to [facility]. [facility] for Admissions; awaiting to call back to see if a [facility] bed will be open Sun. will cont to follow. Current Discharge Plan: SNF Date Signed: 07/11/2017 06:09 PM Electronically Signed By:Eunice Guaman RN Case Management Discharge Plan Note Case Management Discharge Discharge Order Complete? Answers: Yes Patient to Obtain Answers: Other Notes: [facility] Medications Transportation Arranged Answers: [facility] Transport will Pick (Date 07/12/2017 03:00 PM & Time) Case Management Transport Answers: Yes Form Complete Faxed Final Orders Answers: Yes Notes: [facility] Agency/Facility Transfer Answers: Yes Report Printed & Faxed to Receiving Agency Family Notified Answers: Yes Notes: Daughter present Discharge Comments Notes: Patient has been discharged to [facility]. [facility] contacted for transport. Lines up a stretcher for comfort. Her [facility]# [id number] Conf# [id number]. [facility] to p/u at 3:00PM. Daughter present and knows the plan. Date Signed: 07/12/2017 01:15 PM Electronically Signed By:Rose Souza LCSW Intervention Information Intervention Type:*IM-Signed Date of Service:07/12/2017 02:28 PM Patient Type:Inpatient Staff Member:MERLENE Souza Judith Hours:0.25 Discipline:Manager R D Severity: Comment:
[2017-07-12 16:26] VITALS: PULSE 83; O2SAT 97
--- NOTE | 2017-07-18 06:49 | GOP ---
[f rep st] OPERATIVE REPORT DATE OF OPERATION: 07/08/2017 SURGEON: Shyam Cruz MD TANBARK PEELER: None. PREOPERATIVE DIAGNOSIS: Right femur intertrochanteric femur fracture. POSTOPERATIVE DIAGNOSIS: Right femur intertrochanteric femur fracture. PROCEDURE PERFORMED: Open reduction, internal fixation right intertrochanteric femur fracture with i ntramedullary implant. FINDINGS: SPECIMENS: To Pathology, none. INDICATIONS: The patient is an 86-year-old woman who sustained a fall and intertrochanteric fracture to her right femur. She has 90 degrees of angulation across her femoral fracture site. Given her a ge, fracture location and instability, I have recommended fixation with an intramedullary implant to allow mobilization, weightbearing, and minimize risk for deep venous thrombosis. She understood this and wished to proceed. Written consent was signed and placed in patient's chart. DESCRIPTION OF PROCEDURE: The patient was identified in the preanesthesia area. The right hip clear ly demarcated as the operative site with indelible marker. She was given 2 g of Ancef intravenously en route to the operative suite. In the OR, general endotracheal anesthesia was administered. Atten tion was turned to the right hip which was sterilely prepped and draped. She had been positioned on the fracture table. Using gentle manipulation, the fracture was reduced into an anatomic position. A shower curtain drape was used with an extension with planned long nail insertion. A 2 cm incision was made proximally and a guidewire advanced into the proximal aspect of the greater trochanter. Thi s was opened with a single stage reamer, and a long TFN nail from [employer] was then advanced over the guidewire, across the fracture site. A separate percutaneous incision was made at the head screw ins ertion site. Guidewire was then placed into a central position in the femoral head. This was reamed at the lateral cortex only and the appropriate length head screw was then impacted. The proximal se t screw was appropriately tensioned. No distal interlocking screw was utilized. The assembly was re moved. The fracture was anatomically reduced. The traction was removed from the table. The wound w as irrigated, closed in layers using 2-0 Monocryl and josué. Margins were instilled with 20 cc of 0.5% Marcaine with epinephrine. A sterile dressing was applied. The patient was awakened, taken to recovery room in good stable condition. TOTAL TOURNIQUET TIME: None. COMPLICATIONS: None. IMPLANTS: As above. /[id number]/MODL
== END 2017-07-12 14:38 | DRG 481 ==
LOC: F3N 13:47
PROVIDERS: ADMIT Internal Medicine; ATTEND Internal Medicine
PROC: 0QS606Z Reposition Right Upper Femur with Intramedullary Internal Fixation Device, Open Approach (ICD-10-PCS; principal; 2017-07-08 16:00)
DX: S72.141A Displaced intertrochanteric fracture of right femur, initial encounter for closed fracture (principal); D62 Acute posthemorrhagic anemia; W01.0XXA Fall on same level from slipping, tripping and stumbling without subsequent striking against object, initial encounter; Y92.59 Other trade areas as the place of occurrence of the external cause; F03.90 Unspecified dementia, unspecified severity, without behavioral disturbance, psychotic disturbance, mood disturbance, and anxiety; Z87.891 Personal history of nicotine dependence
CPT/HCPCS: 82607-90; 96374; 97116-GP; 97161-GP; 97166-GO; 97530-GP; 97535-GO; C1713; J0690; J1100; J1170; J1650; J2001; J2405; J2704; J3010; J3490; P9016

== ENCOUNTER 2017-08-05 20:30 | Emergency (ER) | payer OTHER ==
[2017-08-05 20:38] VITALS: RESP 16
--- NOTE | 2017-08-05 21:01 | EDPHY ---
H & P Time Seen by Provider: 08/05/17 20:38 HPI/ROS: CHIEF COMPLAINT: Right knee injury HISTORY OF PRESENT ILLNESS: History is from the patient, and she is alert. Patient has history of chronic knee pain and arthritis and is on oxycodone. She has been in [place] for about a month living at assisted living because her granddaughter and her live here. She has fallen 6 times in the last year, and now uses a walker. She fell today at 2:00 p.m. when she tripped on the marble trim around the neighboring unit's fireplace and fell down injuring her right knee. She was brought in by EMS with right knee pain which is mild at rest but severe with any movement or weight-bearing. She can't walk. Started just after the fall feeling worse. REVIEW OF SYSTEMS: Eye: no change in vision ENT: no sore throat Cardiac: no chest pain or syncope Pulmonary: no cough or SOB Abdomen: no vomiting, diarrhea, abdominal pain Musculoskeletal: no back pain or neck pain, chronic right hip and knee pain, worse now Skin: no rash Neuro: no headache Constitutional: no fever : no urinary symptoms A comprehensive 10 point review of systems is otherwise negative aside from elements mentioned in the history of present illness. PAST MEDICAL HISTORY: Right hip fracture, breast cancer, dementia, depression Social history: Assisted living, granddaughter in town General Appearance: Alert and conversant, cooperative. Eyes: No scleral icterus. ENT, Mouth: Normal mucous membranes. No external deformity or evidence of head trauma. Respiratory: Normal respiratory effort, breath sounds equal, lungs are clear to auscultation. Cardiovascular: Regular rate and rhythm. Gastrointestinal: Abdomen is soft and non tender. Neurological: Alert, face symmetric, normal motor and sensory in extremities. Normal speech. Skin: Venous stasis changes right leg greater than left Musculoskeletal: No cervical thoracic or lumbar spine tenderness to palpation. Her right knee has tenderness over the patella and along the joint line laterally. It is painful to flex and extend but stable to varus and valgus stress. Hip has a little bit of pain rotation but the patient does not really have hip pain states that is baseline. Normal motor sensory and vascular in the right foot. Lower leg and foot are nontender. Psychiatric: Not agitated. Emergency Department course/MDM: Cervical spine cleared clinically. Mental status is relatively clear at this point. Patient had x-rays of the right hip and right knee which show osteoarthritis and old hardware but no acute fracture or dislocation. She will need to be admitted to the hospital she lives at assisted living and can't walk now even with her walker. Discussed with [facility] at 2101; [facility] will [facility], she is stable for transfer, discussed with daughter and patient, consented. 2120: Accepting physician Dr. Thuy Pina to admit at [facility], per [facility]. This is a patient requested transfer, [facility] patient. Discussed with daughter Lianet at 2124 by phone; patient had confusion after the fall per daughter on the phone. CT head ordered. She does not appear to be confused right now. 2154: CT head negative per Dr. Ron Conley. [facility] unlikely. Smoking Status: Former smoker Constitutional: Initial Vital Signs Temperature (C) 36.9 C 08/05/17 20:34 Heart Rate 86 08/05/17 20:34 Respiratory Rate 16 08/05/17 20:34 Blood Pressure 142/88 H 08/05/17 20:34 O2 Sat (%) 97 08/05/17 20:34 O2 Delivery Mode Room Air Allergies/Adverse Reactions: No Known Allergies Allergy (Unverified 08/05/17 20:34) Home Medications: Medication Instructions Recorded Anastrozole [Arimidex 1 mg (*)] 1 mg PO DAILY 07/08/17 Aspirin [Aspirin 81mg (*)] 81 mg PO DAILY 07/08/17 DULoxetine [Cymbalta 30 MG (*)] 30 mg PO DAILY 07/08/17 Donepezil HCl [Aricept 5 MG (*)] 5 mg PO HS 07/08/17 Ibuprofen [Motrin (*)] 200 - 400 mg PO Q6HRS PRN 07/08/17 traZODone [traZODONE 100MG (*)] 100 mg PO HS 07/08/17 Acetaminophen [Tylenol 325mg (*)] 650 mg PO Q6HRS #20 tab 07/12/17 Enoxaparin [Lovenox 40 MG (*)] 40 mg SC DAILY #20 syr 07/12/17 oxyCODONE IR [Oxycodone Ir (*)] 5 - 10 mg PO Q4HRS PRN #30 tab 07/12/17 Medical Decision Making - Diagnostics Imaging Results: Imaging Impressions Hip X-Ray 08/05/17 20:35 Impression: 1. No acute fracture. 2. Healing subacute right intertrochanteric fracture with intact hardware. Knee X-Ray 08/05/17 20:35 Impression: Negative. No acute fracture. Head CT 08/05/17 21:26 Impression: 1. No acute intracranial hemorrhage or fracture. 2. Atrophy and moderate diffuse nonspecific white matter disease. Findings discussed with Emergency Department physician, Geoffrey Maldonado M.D., on August 05, 2017 at 2154. Imaging: I viewed and interpreted images myself Differential Diagnosis: Differential for knee pain considered including but not limited to patellar fracture, tibial plateau fracture, knee contusion, meniscus injury, compartment syndrome. Fall clearly mechanical not syncope, doubt malignant dysrhythmia or seizure. Consult/Admit Bed Type: [place] [id number] - Data Points Medications Given: Discontinued Medications Oxycodone/Acetaminophen (Percocet 5/325) 2 tab PO EDNOW ONE Stop: 08/05/17 22:58 Last Admin: 08/05/17 22:58 Dose: 2 tab Departure - Departure Disposition: Acute Care Hospital Not [facility] Clinical Impression: Contusion of right knee Qualifiers: Encounter type: initial encounter Qualified Code(s): S80.01XA - Contusion of right knee, initial encounter Condition: Good Referrals: Patient,NotPresent [Unknown] - As per Instructions
[2017-08-05 21:35] VITALS: O2SAT 92
[2017-08-05] MEDS ORDERED: OXYCODONE/APAP 5/325 TAB ONE (22:56)
[2017-08-05] MEDS ORDERED: OXYCODONE/APAP 5/325 TAB PO ONE (22:57)
[2017-08-05 23:29] VITALS: BP 151/77; PULSE 67; TEMP 97.9
== END 2017-08-05 23:29 | disposition short-term general hospital (02) ==
LOC: EDUNIT#
DX: S80.01XA Contusion of right knee, initial encounter (principal); Z79.82 Long term (current) use of aspirin; Z85.3 Personal history of malignant neoplasm of breast; Z87.891 Personal history of nicotine dependence; W01.0XXA Fall on same level from slipping, tripping and stumbling without subsequent striking against object, initial encounter

== ENCOUNTER 2017-12-23 08:31 | Emergency (ER) | payer OTHER ==
--- NOTE | 2017-12-23 08:49 | CPEKG ---
Heart Rate: 95 RR Interval: 632 P-R Interval: 168 QRSD Interval: 80 QT Interval: 408 QTC Interval: 513 P Moncure: 72 QRS Moncure: 11 T Wave Moncure: 71 EKG Severity - ABNORMAL ECG - EKG Impression: SINUS RHYTHM EKG Impression: PROBABLE LEFT ATRIAL ABNORMALITY Electronically Signed By: Geoffrey Maldonado 23-Dec-2017 08:50:20
--- NOTE | 2017-12-23 08:50 | EDPHY ---
H & P Time Seen by Provider: 12/23/17 08:43 HPI/ROS: CHIEF COMPLAINT: Head injury HISTORY OF PRESENT ILLNESS: History from EMS as the patient has pretty severe dementia. Apparently she tripped over her long nightgown this morning at [facility] and by report from EMS this happened less than 1 or 2 hr ago. She was found lying on the ground with injury to her head. The patient on arrival has no complaints except that she has"pain everywhere" and can't really tell me how long that is been the case. Further history and review of systems is limited by the patient's dementia and baseline poor memory. REVIEW OF SYSTEMS: Eye: Denies change in vision ENT: Denies nose bleeding Cardiac: Denies chest pain Pulmonary: Not short of breath Abdomen: No vomiting or abdominal pain Musculoskeletal: No back or neck pain, but says she has"pain all over"and can' t be more specific Skin: Skin tear on the left arm Neuro: no headache Review of systems: Limited by patient's dementia and poor memory PAST MEDICAL HISTORY: Previous right femur fracture, dementia Social history: [facility] memory care resident. General Appearance: Alert and conversant, cooperative. Eyes: No scleral icterus. Pupils equal and reactive extraocular motion intact. ENT, Mouth: Dry mucous membranes. 1.5 cm abrasion on the occiput. Respiratory: Normal respiratory effort, breath sounds equal, lungs are clear to auscultation. Cardiovascular: Regular rate and rhythm. Gastrointestinal: Abdomen is soft and non tender. Neurological: Alert, follows commands. Poor short-term memory. She can move all 4 extremities. Skin: Non-suturable skin tear on the left arm. Musculoskeletal: No spinal tenderness. No point tenderness on any extremity. The right leg is slightly shortened, and she does have a little bit of pain in the hip or pelvis area on moving either leg. Psychiatric: Not agitated. Emergency Department course/MDM: CT head for head trauma with after a fall in elderly patient, bilateral hip x- rays, CBC and chemistry, EKG. Fall was this morning, rhabdomyolysis would be unlikely. History is clearly mechanical fall and not syncope. 1115: CTA negative for change per Dr. Colon, patient ambulatory in the ED to the bathroom, stable for discharge. Case management was working with the daughter, family is agreeable to the disposition. Smoking Status: Former smoker Constitutional: Initial Vital Signs Temperature (C) 36.7 C 12/23/17 08:48 Heart Rate 75 12/23/17 08:48 Respiratory Rate 16 12/23/17 08:48 Blood Pressure 160/88 H 12/23/17 08:48 O2 Sat (%) 94 12/23/17 08:48 O2 Delivery Mode Room Air Allergies/Adverse Reactions: No Known Allergies Allergy (Unverified 08/05/17 20:34) Home Medications: Medication Instructions Recorded DULoxetine [Cymbalta 30 MG (*)] 30 mg PO DAILY 07/08/17 Ibuprofen [Motrin (*)] 200 - 400 mg PO Q6HRS PRN 07/08/17 Acetaminophen [Tylenol 325mg (*)] 650 mg PO Q6HRS #20 tab 07/12/17 Fosamax 5mg 12/23/17 Mirtazapine 12/23/17 Vitamin B-1 12/23/17 Vitamin B12 12/23/17 Medical Decision Making - Diagnostics EKG Interpretation: 12-lead EKG interpreted by me; official reading is in trace master. My interpretation is sinus rhythm with left atrial abnormality rate 95 Imaging Results: Imaging Impressions Femur X-Ray 12/23/17 08:50 Impression: Stable and negative. Hip X-Ray 12/23/17 08:50 Impression: Nothing acute identified. Hip X-Ray 12/23/17 08:50 Impression: Negative. Head CT 12/23/17 08:51 Impression: Stable elderly head CT. Results called to Dr. Maldonado at 11:04 AM General information for patients regarding this examination can be found at [email or web address]. If you have questions or comments about this report, please contact me at (hospital) or [phone] (cell). Imaging: Discussed imaging studies w/ callisthenics instructor Radiologist, I viewed and interpreted images myself Differential Diagnosis: Differential diagnosis considered for head injury including but not limited to concussion, skull fracture, intraparenchymal contusion, subarachnoid, subdural and epidural hematoma. - Data Points Laboratory Results: Laboratory Results 12/23/17 09:41 12/23/17 09:41 12/23/17 12/23/17 09:41 09:41 WBC 6.04 10^3/uL 10^3/uL (3.80-9.50) RBC 4.33 10^6/uL 10^6/uL (4.18-5.33) Hgb 14.2 g/dL g/dL (12.6-16.3) Hct 43.2 % % (38.0-47.0) MCV 99.8 fL fL (81.5-99.8) MCH 32.8 pg pg (27.9-34.1) MCHC 32.9 g/dL g/dL (32.4-36.7) RDW 14.9 % % (11.5-15.2) Plt Count 250 10^3/uL 10^3/uL (150-400) MPV 10.6 fL fL (8.7-11.7) Neut % (Auto) 53.5 % % (39.3-74.2) Lymph % (Auto) 29.6 % % (15.0-45.0) [place] % (Auto) 13.9 % H % (4.5-13.0) Eos % (Auto) 2.5 % % (0.6-7.6) Baso % (Auto) 0.3 % % (0.3-1.7) Nucleat RBC Rel Count 0.0 % % (0.0-0.2) Absolute Neuts (auto) 3.23 10^3/uL 10^3/uL (1.70-6.50) Absolute Lymphs (auto) 1.79 10^3/uL 10^3/uL (1.00-3.00) Absolute Monos (auto) 0.84 10^3/uL H 10^3/uL (0.30-0.80) Absolute Eos (auto) 0.15 10^3/uL 10^3/uL (0.03-0.40) Absolute Basos (auto) 0.02 10^3/uL 10^3/uL (0.02-0.10) Absolute Nucleated RBC 0.00 10^3/uL 10^3/uL (0-0.01) Immature Gran % 0.2 % % (0.0-1.1) Immature Gran # 0.01 10^3/uL 10^3/uL (0.00-0.10) Sodium 141 mEq/L mEq/L (135-145) Potassium 4.5 mEq/L mEq/L (3.3-5.0) Chloride 107 mEq/L mEq/L (97-110) Carbon Dioxide 25 mEq/l mEq/l (22-31) Anion Gap 9 mEq/L mEq/L (8-16) BUN 22 mg/dL mg/dL (7-23) Creatinine 0.7 mg/dL mg/dL (0.6-1.0) Estimated GFR > 60 Glucose 74 mg/dL mg/dL (70-100) Calcium 10.1 mg/dL mg/dL (8.5-10.4) Departure - Departure Disposition: Home, Routine, Self-Care Clinical Impression: Abrasion of scalp, initial encounter Abrasion of left upper arm Qualifiers: Encounter type: initial encounter Qualified Code(s): S40.812A - Abrasion of left upper arm, initial encounter Condition: Good Instructions: Head Injury (ED), Abrasion (ED) Referrals: ANNIA LOMELI [Other] - As per Instructions [facility] ,. [Edm Groups for Call Sched] - As per Instructions
[2017-12-23] MEDS ORDERED: TDAP ADULT 0.5 ML INJ (BOOSTRIX) IM ONE (09:00)
[2017-12-23 09:47] LABS: PLATELET COUNT 250 10^3/uL (150-400)
[2017-12-23 11:59] VITALS: BP 129/85
--- NOTE | 2017-12-23 12:24 | ASMTCMCOM ---
CM Note CM Note Notes: Patient resides at [facility] in [place] . Her Daughter Lianet lives in [place], and patient's [facility] lives and [place] and was available to take patient back to [facility] upon D/C from the ER I spoke with Lianet about patient's history, frequent falls, and status at [facility]. Patient does reside in their locked memory care unit. She has adjusted to residence there and Lianet feels that it is a safe place for mom. I have spoken to Sangeeta, wound care specialist at [facility] and she is comfortable with patient returning Patient is a [facility] patient and her PCP is Dr. Shanon Teague. I spoke with Lianet about following up with her mom's most recent tetanus shot so as to update her medical record. Sangeeta ([facility]) was not able to confirm a known date of this either. Patient discharged back to [facility] in the care of her [facility] Date Signed: 12/23/2017 12:23 PM Electronically Signed By:Aye Zaidi RN
== END 2017-12-23 12:19 | disposition home or self-care (01) ==
LOC: EDBD → EDUNIT#
DX: S00.01XA Abrasion of scalp, initial encounter (principal); S40.812A Abrasion of left upper arm, initial encounter; Z87.891 Personal history of nicotine dependence; W01.0XXA Fall on same level from slipping, tripping and stumbling without subsequent striking against object, initial encounter